=== PATIENT | male | born 1985 ===

== ENCOUNTER 2019-02-08 15:14 | Emergency (ER) | payer SELFPAY ==
--- NOTE | 2019-02-08 15:29 | Event Note ---
ED Screening Note Date of service: 02/08/19 Time: 15:23 ED Screening Note: Pt complains of suicidal and homicidal thoughts x 1 week This initial assessment/diagnostic orders/clinical plan/treatment(s) is/are subject to change based on patients health status, clinical progression and re-assessment by fellow clinical providers in the ED. Further treatment and workup at subsequent clinical providers discretion. Patient/guardian urged not to elope from the ED as their condition may be serious if not clinically assessed and managed. Initial orders include:
--- NOTE | 2019-02-08 16:49 | Emergency Department Report ---
ED General Adult HPI - General Chief complaint: Psych Stated complaint: MH EVAL Time Seen by Provider: 02/08/19 16:46 Source: patient Mode of arrival: Ambulatory Limitations: No Limitations - History of Present Illness Initial comments: 34-year-old male with a history of schizophrenia and bipolar disorder presents after stating that he felt that an needed some help. Patient was [facility] to get [facility] he states that he was homeless. Patient states the last told him to come to the ER for evaluation. Patient states currently he does not want to hurt himself. Patient denies any auditory of visual hallucinations. Patient denies any suicidal or homicidal ideation this current time. Patient states that he's been taking his medications. Patient states his last suicidal attempt was more than a year ago and he attempted to drink bleach. Patient does state that he had been having suicidal or homicidal thoughts for the past week prior to arrival here in emergency department. - Related Data Allergies Allergy/AdvReac Type Severity Reaction Status Date / Time chlorpromazine Allergy Unknown Verified 02/08/19 15:25 [From Thorazine] haloperidol [From Haldol] Allergy Unknown Verified 02/08/19 15:25 olanzapine [From Zyprexa] Allergy Unknown Verified 02/08/19 15:25 ED Review of Systems ROS: Stated complaint: EVAL Other details as noted in HPI Constitutional: denies: chills, fever Eyes: denies: eye pain, eye discharge, vision change ENT: denies: ear pain, throat pain Respiratory: denies: cough, shortness of breath, wheezing Cardiovascular: denies: chest pain, palpitations Endocrine: no symptoms reported Gastrointestinal: denies: abdominal pain, nausea, diarrhea Genitourinary: denies: urgency, dysuria Musculoskeletal: denies: back pain, joint swelling, arthralgia Skin: denies: rash, lesions Neurological: denies: headache, weakness, paresthesias Psychiatric: homicidal thoughts, suicidal thoughts Hematological/Lymphatic: denies: easy bleeding, easy bruising ED Past Medical Hx - Past Medical History Previous Medical History?: Yes Hx Hypertension: No Hx CVA: No Hx Heart Attack/AMI: No Hx Congestive Heart Failure: No Hx Diabetes: No Hx Deep Vein Thrombosis: No Hx Pulmonary Embolism: No Hx GERD: No Hx Liver Disease: No Hx Renal Disease: No Hx of Cancer: No Hx Sickle Cell Disease: No Hx Arthritis: No Hx Headaches / Migraines: No Hx Seizures: No Hx Kidney Stones: No Hx Psychiatric Treatment: No Hx Asthma: No Hx COPD: No Hx Tuberculosis: No Hx Dementia: No Hx HIV: No - Surgical History Past Surgical History?: No Hx Coronary Stent: No Hx Open Heart Surgery: No Hx Pacemaker: No Hx Internal Defibrillator: No Hx Cholecystectomy: No Hx Appendectomy: No Hx Breast Surgery: No - Social History Smoking Status: Never Smoker Substance Use Type: Alcohol, Marijuana ED Physical Exam - General Limitations: No Limitations General appearance: alert, in no apparent distress - Head Head exam: Present: atraumatic, normocephalic - Eye Eye exam: Present: normal appearance - ENT ENT exam: Present: mucous membranes moist - Neck Neck exam: Present: normal inspection - Respiratory Respiratory exam: Present: normal lung sounds bilaterally. Absent: respiratory distress - Cardiovascular Cardiovascular Exam: Present: regular rate, normal rhythm. Absent: systolic murmur, diastolic murmur, rubs, gallop - GI/Abdominal GI/Abdominal exam: Present: soft, normal bowel sounds - Rectal Rectal exam: Present: deferred - Extremities Exam Extremities exam: Present: normal inspection - Back Exam Back exam: Present: normal inspection - Neurological Exam Neurological exam: Present: alert, oriented X3 - Psychiatric Psychiatric exam: Present: homicidal ideation, suicidal ideation - Skin Skin exam: Present: warm, dry, intact, normal color. Absent: rash ED Course Vital Signs 02/08/19 02/08/19 02/09/19 15:23 20:41 02:00 Temperature 98.1 F 98.8 F 98.6 F Pulse Rate 105 H 83 81 Respiratory 16 18 18 Rate Blood Pressure 114/72 Blood Pressure 110/56 109/62 [Right] O2 Sat by Pulse 96 98 97 Oximetry 02/09/19 07:00 Temperature 98.3 F Pulse Rate 79 Respiratory 20 Rate Blood Pressure Blood Pressure 103/65 [Right] O2 Sat by Pulse 99 Oximetry ED Medical Decision Making - Lab Data Result diagrams: 02/08/19 16:57 02/08/19 16:57 - Medical Decision Making Patient is medically clear. Patient evaluated by [employer] [facility] and will be evaluated by the psychiatry [facility] a.m. Patient is on a 1013 currently. Patient evaluated by psychiatry and thought not to meet inpatient criteria. Patient to be discharged to follow-up as an outpatient. 1013 rescind - Differential Diagnosis Dehydration; Anemia; electrolyte abnormality; Psychosis Critical care attestation.: If time is entered above; I have spent that time in minutes in the direct care of this critically ill patient, excluding procedure time. ED Disposition Clinical Impression: Bipolar disorder (manic depression) Disposition: DC-01 TO HOME OR SELFCARE Is pt being admited?: No Does the pt Need Aspirin: No Condition: Stable Referrals: PRIMARY CARE, [Primary Care Provider] - 3-5 Days Time of Disposition: 21:35 Print Language: TELUGU
[2019-02-08 17:12] LABS: Basophils # (Auto) 0.1 K/mm3 (0.0-0.1); Basophils % (Auto) 0.6 % (0.0-1.8); Eosinophils # (Auto) 0.1 K/mm3 (0.0-0.4); Eosinophils % (Auto) 0.7 % (0.0-4.3); Hemoglobin 14.6 gm/dl (11.8-15.2); Lymphocytes # (Auto) 2.2 K/mm3 (1.2-5.4); Lymphocytes % (Auto) 22.6 % (13.4-35.0); Mean Corpuscular HGB Conc 34 % (32-34); Mean Corpuscular Volume 98 fl (84-94); Monocytes # (Auto) 0.7 K/mm3 (0.0-0.8); Monocytes % (Auto) 7.6 % (0.0-7.3); Platelet Count 200 K/mm3 (140-440); Red Cell Distribution Width 14.5 % (13.2-15.2)
[2019-02-08 17:29] LABS: Bilirubin,Urine NEG (Negative); Blood,Urine NEG (Negative); Color,Urine Yellow (Yellow); Mucus,Urine FEW /HPF; Protein,Urine <15 mg/dL mg/dL (Negative); Urobilinogen,Urine < 2.0 mg/dL (<2.0); WBC,Urine < 1.0 /HPF (0.0-6.0)
[2019-02-08 17:33] LABS: BUN/Creatinine Ratio 10; Blood Urea Nitrogen 11 mg/dL (9-20); Calcium 9.6 mg/dL (8.4-10.2); Hemolysis Index 7
[2019-02-08 17:34] LABS: Amphetamine Screen,Urine PRESUMPTIVE NEGATIVE; Benzodiazepines Screen,Urine PRESUMPTIVE NEGATIVE; Methadone Screen,Urine PRESUMPTIVE NEGATIVE; Opiate Screen,Urine PRESUMPTIVE NEGATIVE
[2019-02-08 18:38] LABS: Cannabinoid Screen,Urine PRESUMPTIVE POSITIVE; Cocaine Screen,Urine PRESUMPTIVE POSITIVE
--- NOTE | 2019-02-09 12:10 | Consultation ---
History of Present Illness - Reason for Consult Consult date: 02/09/19 Reason for consult: Initial Psychiatric Evaluation - Chief Complaint Chief complaint: "I accidentally said I was suicidal" - History of Present Psychiatric Illness Patient is a 34 year old male that presents to the emergency room wanting to go to partial hospitalization at [facility]. Patient has a PPHx of schizophrenia. Today the patient is calm and cooperative during the assessment. Patient is known to provider. He states, " I told them I was having suicidal ideations when that is not true. I do not have a plan. I just want a pl jeffery to live." Patient denies auditory/visual hallucinations, delusions, and suicidal/homicidal ideations. Patient reports appropriate sleep, appetite, and energy. Patient has been noncompliant with medication x 1 week ago. Patient was recently released from [facility] on 01/23/2019. Patient reports that he is craving marijuana. Current Psychiatric Medications: Abilify and Wellbutrin ( dosages unknown). Patient cannot afford medication. Past Psychiatric History: Schizophrenia (2012); 6 previous inpatient psychiatric hospitalizations ([facility], [facility], [facility],)last hospitalization 03/25/2019;no outpatient psychiatrist; no previous suicide attempts, Past Psychiatric Medication Trials: Abilify and Wellbutrin History of Trauma/Abuse: Patient denies past trauma experience; Patient denies sexual, physical, and mental abuse. Drug/Alcohol Abuse History: "Crack"- daily, amount- varies, last use- 02/08/19, first use - " 2017"; Marijuana- " everyday", amount- " 1 gram daily"; last use- 02/08/19, first use- "15 years old." UDS positive for marijuana and cocaine. Social History: 11th grade-highest level of education; homeless; 1 daughter- 13 years old; unemployed; limited support- family located in [place]. Family History: Patient denies. Medications and Allergies Allergies Allergy/AdvReac Type Severity Reaction Status Date / Time chlorpromazine Allergy Unknown Verified 02/08/19 15:25 [From Thorazine] haloperidol [From Haldol] Allergy Unknown Verified 02/08/19 15:25 olanzapine [From Zyprexa] Allergy Unknown Verified 02/08/19 15:25 Mental Status Exam - Vital signs Last Vital Signs Temp 98.3 F 02/09/19 07:00 Pulse 79 02/09/19 07:00 Resp 20 02/09/19 07:00 BP 103/65 02/09/19 07:00 Pulse Ox 99 02/09/19 07:00 - Exam Narrative exam: Mental Status Exam: Appearance: calm Behavior: regular eye contact Speech: regular rate and tone Mood: "I'm ready to go" Affect: appropriate Thought Process: circumstantial Thought Content: denies SI/HI's, AVH's, and delusions Motor Activity: lying in bed Cognition: A/O x 3 Insight: fair Judgment: fair Results Result Diagrams: 02/08/19 16:57 02/08/19 16:57 Abnormal lab results 02/08/19 02/08/19 02/08/19 Range/Units 16:57 16:57 16:57 MCV 98 H (84-94) fl MCH 33 H (28-32) pg Brown % (Auto) 7.6 H (0.0-7.3) % Salicylates < 0.3 L (2.8-20.0) mg/dL Acetaminophen < 5.0 L (10.0-30.0) ug/mL All other labs normal. Assessment and Plan Assessment and plan: Impression: PPHx schizophrenia . Cocaine Use Disorder, severe and Marijuana Use Disorder, severe. Today the patient is cooperative and calm during the assessment. Patient denies SI/HI's, A/VH's, and delusions. UDS positive for marijuana and cocaine. Recommendations/Plan: 1. Will rescind 1013. Patient does not meet criteria. 2. Patient will follow-up at [facility] or [facility] program for substance abuse. 3. Patient educated on recreational drug use. Patient informed to abstain from all illegal substances. Disposition: Patient will be provided with the following referral sources- [place] and [facility] program. Will staff with Dr. Lamont Matthews.
[2019-02-09 15:17] VITALS: BP 100/54
== END 2019-02-09 15:45 | disposition home or self-care (01) ==
LOC: ED 15:14
DX: F31.9 Bipolar disorder, unspecified (principal)
CPT/HCPCS: 36415; 80048; 80307; 80320; 81001; 85025; G0480